=== PATIENT | female | born 1995 | race Caucasian/White ===

== ENCOUNTER 2016-08-04 15:31 | Emergency (ER) | payer SELFPAY ==
[2016-08-04 15:54] VITALS: BP 114/75
--- NOTE | 2016-08-04 16:02 | Emergency Department Report ---
Chief Complaint: Abdominal Pain Stated Complaint: N/V POSS PREG Time Seen by Provider: 08/04/16 16:00 - HPI History of Present Illness: 21 y/o female complain of vaginal bleeding after taken a home test on 2 day ago that was positive.pt state today she starting bleeding and concern if she miscarriage or not. - ROS Review of Systems: per HPI - Exam Vital Signs: Vital Signs 08/04/16 15:50 Temperature 98.3 F Pulse Rate 80 Respiratory 18 Rate Blood Pressure 114/75 O2 Sat by Pulse 100 Oximetry Physical Exam: GENERAL: The patient is well-developed and well-nourished. Patient is in NAD. HENT: Normocephalic. Atraumatic. Patient has moist mucous membranes. Throat: No erythema, swelling or exudates. Ears:Tympanic membranes pearly rodriguez ,intact , and free of exudate and erythema . EYES: Extraocular motions are intact, PERRL NECK: Supple. No meningitic signs are noted. There is no adenopathy noted. CHEST/LUNGS: Clear to auscultation bilaterally. No wheezing, rales or rhonchi noted. There is no respiratory distress noted. HEART/CARDIOVASCULAR: Regular rate and rhythm. Normal S1 S2. No murmurs, rubs , clicks, or gallops. ABDOMEN: Abdomen is soft, nontender.. Bowel sounds normoactive. There is no abdominal distention. Negative rebound tenderness. : Deferred. SKIN: There is no rash. There is no edema. There is no diaphoresis.Normal skin turgor NEURO: The patient is A&Ox3. The patient has no focal neurologic deficits. MUSCULOSKELETAL: There is no tenderness or deformity. There is no limitation range of motion. posture erect.Spine aligned,no deformities. PSYCH: Pt has appropriate mood and affect. MSE screening note: Focused history and physical exam performed. Due to findings the following was ordered: ED Disposition for MSE Condition: Stable Instructions: Abdominal Pain (ED)
[2016-08-04 16:30] LABS: Bilirubin,Urine NEG (Negative); Blood,Urine LG (Negative); Ketones,Urine TR mg/dL (Negative); Leukocyte Esterase,Urine NEG (Negative); Mucus,Urine 3+ /HPF; Nitrite,Urine NEG (Negative); Urobilinogen,Urine < 2.0 mg/dL (<2.0)
[2016-08-04 16:42] LABS: Basophils % (Auto) 0.5 % (0.0-1.8); Eosinophils % (Auto) 2.9 % (0.0-4.3); Hematocrit 36.6 % (30.3-42.9); Hemoglobin 12.3 gm/dl (10.1-14.3); Mean Corpuscular HGB Conc 34 % (30-34); Mean Corpuscular Hemoglobin 28 pg (28-32); Mean Corpuscular Volume 84 fl (79-97); Platelet Count 183 K/mm3 (140-440); Red Blood Count 4.35 M/mm3 (3.65-5.03); Red Cell Distribution Width 12.5 % (13.2-15.2); White Blood Count 7.4 K/mm3 (4.5-11.0)
[2016-08-04 16:58] LABS: Amylase 45 units/L (27-131); Blood Urea Nitrogen 9 mg/dL (7-17); Calcium 9.1 mg/dL (8.4-10.2); Carbon Dioxide 24 mmol/L (22-30); Glucose 88 mg/dL (65-100); Lipase 17 units/L (13-60); Potassium 3.9 mmol/L (3.6-5.0); Sodium 139 mmol/L (137-145)
[2016-08-04 17:08] LABS: Anion Gap 18 mmol/L
--- NOTE | 2016-08-05 18:53 | ED Elopement Review ---
ED Pt Elopement review - Results review Lab results: Laboratory Tests 08/04/16 08/04/16 08/04/16 16:22 16:22 16:22 WBC 7.4 RBC 4.35 Hgb 12.3 Hct 36.6 MCV 84 MCH 28 MCHC 34 RDW 12.5 L Plt Count 183 Lymph % (Auto) 34.6 Cameron % (Auto) 7.7 H Eos % (Auto) 2.9 Baso % (Auto) 0.5 Lymph # 2.5 Cameron # 0.6 Eos # 0.2 Baso # 0.0 Seg Neutrophils % 54.3 Seg Neutrophils # 4.0 Sodium 139 Potassium 3.9 Chloride 101.0 Carbon Dioxide 24 Anion Gap 18 BUN 9 Creatinine 0.3 L Estimated GFR > 60 BUN/Creatinine Ratio 30.00 Glucose 88 Calcium 9.1 Amylase 45 Lipase 17 HCG, Quant < 2 Urine Color Urine Turbidity Urine pH Ur Specific Iselin Urine Protein Urine Glucose (UA) Urine Ketones Urine Blood Urine Nitrite Urine Bilirubin Urine Urobilinogen Ur Leukocyte Esterase Urine WBC (Auto) Urine RBC (Auto) U Epithel Cells (Auto) Urine Mucus 08/04/16 Unknown WBC RBC Hgb Hct MCV MCH MCHC RDW Plt Count Lymph % (Auto) Cameron % (Auto) Eos % (Auto) Baso % (Auto) Lymph # Cameron # Eos # Baso # Seg Neutrophils % Seg Neutrophils # Sodium Potassium Chloride Carbon Dioxide Anion Gap BUN Creatinine Estimated GFR BUN/Creatinine Ratio Glucose Calcium Amylase Lipase HCG, Quant Urine Color Yellow Urine Turbidity Clear Urine pH 5.0 Ur Specific Iselin 1.030 Urine Protein 30 mg/dl Urine Glucose (UA) Neg Urine Ketones Tr Urine Blood Lg Urine Nitrite Neg Urine Bilirubin Neg Urine Urobilinogen < 2.0 Ur Leukocyte Esterase Neg Urine WBC (Auto) 6.0 Urine RBC (Auto) 31.0 U Epithel Cells (Auto) 7.0 Urine Mucus 3+ - Call Back decision Pt Call Back Decision: Pt to F/U with PMD
== END 2016-08-04 19:46 | disposition left against medical advice (07) ==
LOC: ED 15:31
DX: N93.9 Abnormal uterine and vaginal bleeding, unspecified (principal); Z53.21 Procedure and treatment not carried out due to patient leaving prior to being seen by health care provider
CPT/HCPCS: 36415; 80048; 81001; 82150; 83690; 84702; 85025

== ENCOUNTER 2017-12-05 03:17 | Inpatient (IN) | payer MEDICAID ==
[2017-12-05] MEDS ORDERED: PITOCin/NS 20 UNIT/1000ML DRIP 20,000 MILLIUNITS/1,000 ML BAG IV ONE (03:51)
[2017-12-05] MEDS ORDERED: MINERAL OIL PO PRN (04:27)
[2017-12-05] MEDS ORDERED: ePHEDrine SULFATE IV PRN (04:27)
[2017-12-05] MEDS ORDERED: BRETHINE IVP PRN (04:27)
[2017-12-05] MEDS ORDERED: BRETHINE SUB-Q PRN (04:27)
[2017-12-05] MEDS ORDERED: XYLOCAINE 2% INFILTRATI ONE (04:27)
[2017-12-05] MEDS ORDERED: NORCO 5/325 PO PRN (04:30)
[2017-12-05] MEDS ORDERED: PHENERGAN PO PRN (04:30)
[2017-12-05] MEDS ORDERED: DULCOLAX PR PRN (04:30)
[2017-12-05] MEDS ORDERED: MILK OF MAGNESIA PO PRN (04:30)
[2017-12-05] MEDS ORDERED: ZOFRAN IV PRN (04:30)
[2017-12-05] MEDS ORDERED: LANSINOH TP PRN (04:30)
[2017-12-05] MEDS ORDERED: TUCKS PAD TP PRN (04:30)
[2017-12-05] MEDS ORDERED: BENADRYL PO PRN (04:30)
[2017-12-05] MEDS ORDERED: PHENERGAN PR PRN (04:30)
[2017-12-05] MEDS ORDERED: TYLENOL PO PRN (04:30)
--- NOTE | 2017-12-05 04:42 | History and Physical Report ---
History of Present Illness Date of examination: 12/05/17 Date of admission: 12/05/17 03:42 Chief complaint: Labor History of present illness: Pt is a 22yo BF EDC 12/20/17; EGA 37 6/7 weeks presents to L&D complaining of RUC's q 3-4 mins. She received care at [facility], but presents to L&D 10cm dilated. course has been unremarkable and records are not available. Past History Past Medical History: no pertinent history Past Surgical History: no surgical history Family/Genetic History: none Social history: no significant social history, single - Obstetrical History Expected Date of Delivery: 12/20/17 Actual Gestation: 37 Week(s) 6 Day(s) : 3 Medications and Allergies Allergies Allergy/AdvReac Type Severity Reaction Status Date / Time No Known Allergies Allergy Unverified 09/15/13 23:51 Home Medications Medication Instructions Recorded Confirmed Last Taken Type Pnv95/Ferrous Fumarate/FA 1 each PO QDAY #30 tablet 09/21/13 11/11/15 1 Day Ago Rx [ Vitamins] ~11/10/15 Active Meds: Active Medications Acetaminophen (Tylenol) 650 mg PO Q4H PRN PRN Reason: Pain MILD(1-3)/Fever >100.5/[place] Acetaminophen/Hydrocodone Bitart ([place] 5/325) 2 each PO Q6H PRN PRN Reason: Pain, Moderate (4-6) Bisacodyl (Dulcolax) 10 mg PA BID PRN PRN Reason: Constipation Diphenhydramine HCl (Benadryl) 25 mg PO Q6H PRN PRN Reason: Itching Diphtheria/Tetanus/Acell Pertussis (Boostrix) 0.5 ml IM .ONCE ONE Stop: 12/06/17 04:31 Docusate Sodium (Colace) 100 mg PO BID JOE Ephedrine Sulfate (Ephedrine Sulfate) 10 mg IV Q2M PRN PRN Reason: Hypotension Ferrous Sulfate (Feosol) 325 mg PO BID JOE Lactated Ringer's (Lactated Ringers) 1,000 mls @ 125 mls/hr IV DIRECT JOE Oxytocin/Sodium Chloride (Pitocin/Ns 20 Unit/1000ml Drip) 20 units in 1,000 mls @ 125 mls/hr IV DIRECT JOE Oxytocin/Sodium Chloride (Pitocin/Ns 30 Unit/500ml) 30 units in 500 mls @ 1 mls /hr IV TITR JOE; Protocol Oxytocin/Sodium Chloride (Pitocin/Ns 20 Unit/1000ml Drip) 20 units in 1,000 mls @ 250 mls/hr IV DIRECT JOE Ibuprofen (Motrin) 600 mg PO Q6H JOE Lidocaine (Xylocaine 2%) 20 ml INFILTRATI ONCE ONE Stop: 12/05/17 04:28 Magnesium Hydroxide (Milk Of Magnesia) 30 ml PO HS PRN PRN Reason: Constipation Measles/Mumps/Rubella Vaccine Live (M-M-R Ii Vaccine) 0.5 ml SUB-Q .ONCE ONE Stop: 12/06/17 04:31 Mineral Oil (Mineral Oil) 30 ml PO QHS PRN PRN Reason: Constipation Multi-Ingredient Ointment (Lansinoh) 1 applic TP PRN PRN PRN Reason: Sore Nipples Multivitamins/Iron/Calcium ( Vitamin) 1 each PO QDAY JOE Ondansetron HCl (Zofran) 4 mg IV Q8H PRN PRN Reason: Nausea And Vomiting Promethazine HCl (Phenergan) 25 mg PA Q6H PRN PRN Reason: Nausea And Vomiting Promethazine HCl (Phenergan) 25 mg PO Q6H PRN PRN Reason: Nausea And Vomiting Sodium Chloride (Sodium Chloride Flush Syringe 10 Ml) 10 ml IV PRN NR Terbutaline Sulfate (Brethine) 0.25 mg SUB-Q ONCE PRN PRN Reason: Hyperstimulation/Hypertonicity Terbutaline Sulfate (Brethine) 0.25 mg IVP ONCE PRN PRN Reason: Hyperstimulation/Hypertonicity Witch Lydia/Glycerin (Tucks Pad) 1 each TP PRN PRN PRN Reason: Hemorrhoid/cleansing/soothing Review of Systems All systems: negative - Vital Signs Vital signs: Vital Signs Pulse BP 82 132/83 12/05/17 03:39 12/05/17 03:39 Temp Pulse Resp BP Pulse Ox 85 137/86 12/05/17 04:35 12/05/17 04:35 - Physical Exam Breasts: Positive: deferred Cardiovascular: Regular rate Lungs: Positive: Clear to auscultation Abdomen: Positive: normal appearance Genitourinary (Female): Positive: normal external genitalia Vagina: Positive: normal moisture Uterus: Positive: enlarged Extremities: Positive: normal - Obstetrical FHR: category 1 Uterine Contraction Monitor Mode: External Cervical Dilatation: 10 Cervical Effacement Percentage: 100 station: 0 Uterine Contraction Pattern: Regular Uterine Tone Measurement Phase: Contraction Uterine Contraction Intensity: Strong/Firm Results Result Diagrams: 12/05/17 04:20 All other labs normal. Assessment and Plan - Patient Problems (1) 37 weeks gestation of Onset Date: 12/05/17 Current Visit: Yes Status: Acute Plan to address problem: A: IUP @ 37 6/7 weeks in labor Unknown GBS P: Admit to L&D for expectant vaginal delivery Obtain Medical records IV Ampicillin (2) Precipitate labor Onset Date: 12/05/17 Current Visit: Yes Status: Acute
[2017-12-05 04:43] LABS: Hematocrit 33.3 % (30.3-42.9); Hemoglobin 11.5 gm/dl (10.1-14.3); Mean Corpuscular HGB Conc 35 % (30-34); Mean Corpuscular Hemoglobin 27 pg (28-32); Mean Corpuscular Volume 78 fl (79-97); Platelet Count 137 K/mm3 (140-440); Red Blood Count 4.27 M/mm3 (3.65-5.03); Red Cell Distribution Width 13.6 % (13.2-15.2)
--- NOTE | 2017-12-05 04:47 | Procedure Note ---
OB Delivery Note - Delivery Date of Delivery: 12/05/17 Surgeon: BROOKLYN ORTIZ Estimated blood loss: 100cc - Vaginal Delivery presentation: vertex Delivery position: OA Intrapartum events: precipitous labor- <3hr Delivery induction: none Delivery augmentation: rupture of membranes Delivery monitor: external FHT, external uterine Route of delivery: Delivery placenta: spontaneous Delivery cord: 3 umbilical vessels Episiotomy: none Delivery laceration: none Anesthesia: none Delivery comments: delivered OA and placed on Mom's chest for [id number] bonding and delayed cord clamping, cut by Dad. - A at 1 minute: 8 at 5 minutes: 9 Infant Gender: Female ([id number])
[2017-12-05] MEDS ORDERED: PITOCin/NS 20 UNIT/1000ML DRIP 20 UNITS/1,000 ML BAG IV SCH ×2 (05:00)
[2017-12-05] MEDS ORDERED: LACTATED RINGERS 1,000 ML IV SCH (05:00)
[2017-12-05] MEDS ORDERED: PITOCin/NS 30 UNIT/500ML 30 UNITS/500 ML BAG IV SCH (05:00)
[2017-12-05] MEDS ORDERED: SODIUM CHLORIDE FLUSH SYRINGE 10 ML IV NR (05:00)
[2017-12-05] MEDS: MOTRIN PO SCH ×3 (06:09→18:05)
[2017-12-05] MEDS: PRENATAL VITAMIN PO SCH (12:58)
[2017-12-05] MEDS: FEOSOL PO SCH ×2 (12:58→21:23)
[2017-12-05 17:06] LABS: Hematocrit 30.6 % (30.3-42.9); Hemoglobin 10.4 gm/dl (10.1-14.3)
[2017-12-05] MEDS: COLACE PO SCH ×2 (21:23→21:26)
[2017-12-06] MEDS: MOTRIN PO SCH ×4 (00:46→18:41)
[2017-12-06] MEDS ORDERED: BOOSTRIX IM ONE (06:00)
[2017-12-06] MEDS ORDERED: M-M-R II VACCINE SUB-Q ONE (06:00)
[2017-12-06] MEDS: COLACE PO SCH ×2 (10:02→22:00)
[2017-12-06] MEDS: FEOSOL PO SCH ×2 (10:03→22:00)
[2017-12-06] MEDS: PRENATAL VITAMIN PO SCH (10:03)
--- NOTE | 2017-12-06 12:14 | Progress Note ---
Assessment and Plan - Patient Problems (1) Status post vaginal delivery Current Visit: Yes Status: Acute Plan to address problem: PPD#1 Stable. Continue routine orders. Anticipate discharge tomorrow - awaiting records. Subjective - Subjective Date of service: 12/06/17 Principal diagnosis: PPD#1 s/p Patient reports: appetite normal, voiding normally, pain well controlled, ambulating normally : doing well (No complaints) Objective - Vital Signs Latest vital signs: Vital Signs Temp Pulse Resp BP BP Pulse Ox 12/06/17 09:30 98.5 F 68 16 103/59 99 12/05/17 21:52 98.0 F 74 18 137/88 99 12/05/17 16:00 98.1 F 74 20 104/68 - Exam Breasts: Present: deferred Abdomen: Present: normal appearance, soft Uterus: Present: normal, firm, fundal height below umbilicus Extremities: Present: normal
--- NOTE | 2017-12-06 12:18 | Discharge Summary ---
Providers - Providers Date of Admission: 12/05/17 03:42 Date of discharge: 12/07/17 Attending physician: BROOKLYN ORTIZ Primary care physician: BROOKLYN ORTIZ Hospitalization Reason for admission: active labor Delivery: Episiotomy: none Discharge diagnosis: IUP at term delivered baby: female Hospital course: Uncomplicated Condition at discharge: Stable Disposition: DC-01 TO HOME OR SELFCARE - Discharge Diagnoses (1) Status post vaginal delivery Status: Acute Plan - Provider Discharge Summary Activity: routine, no sex for 6 weeks, no heavy lifting 4 weeks, no strenuous exercise Diet: routine Instructions: routine Additional instructions: [] Smoking cessation referral if applicable(refer to patient education folder for contact #) [] Refer to [facility] Booklet Call your doctor immediately for: * Fever > 100.5 * Heavy vaginal bleeding ( >1 pad per hour) * Severe persistent headache * Shortness of breath * Reddened, hot, painful area to leg or breast * Drainage or odor from incision. * Keep incision clean and dry at all times and follow doctor's instructions regarding bathing/showering - Follow up plan Follow up: BROOKLYN ORTIZ MD [Primary Care Provider] - 6 Weeks (Call [facility])
[2017-12-07] MEDS: MOTRIN PO SCH ×3 (06:00→12:27)
[2017-12-07 09:30] VITALS: BP 102/56
[2017-12-07] MEDS: FEOSOL PO SCH (11:11)
[2017-12-07] MEDS: COLACE PO SCH (11:11)
[2017-12-07] MEDS: PRENATAL VITAMIN PO SCH (11:11)
== END 2017-12-07 16:35 | disposition home or self-care (01) | DRG 775 ==
LOC: TRG 03:17 → LD 03:42 → OB 07:25
PROVIDERS: ADMIT Obstetrics & Gynecology; ATTEND Obstetrics & Gynecology
PROC: 10E0XZZ Delivery of Products of Conception, External Approach (ICD-10-PCS; principal; 2017-12-05)
PROC: 3E0234Z Introduction of Serum, Toxoid and Vaccine into Muscle, Percutaneous Approach (ICD-10-PCS; 2017-12-06)
DX: O62.3 Precipitate labor (principal); Z3A.37 37 weeks gestation of pregnancy; Z37.0 Single live birth; Z23 Encounter for immunization
CPT/HCPCS: 36415; 85014; 85018; 85027; 86592; 86706; 86762; 86850; 86900; 86901; 87806; 90707; 90715; 96361; J2590